=== PATIENT | female | born 1990 | race Caucasian/White ===

== ENCOUNTER → 2018-01-06 | Outpatient (CLI) | payer OTHER | LOC: FIMAGING 13:18 | PROVIDERS: ATTEND Advanced Practice Midwife | DX: O09.892 Supervision of other high risk pregnancies, second trimester (principal); M06.9 Rheumatoid arthritis, unspecified; Z3A.19 19 weeks gestation of pregnancy ==

== ENCOUNTER 2018-05-24 00:03 | Inpatient (IN) | payer OTHER ==
[2018-05-24] MEDS ORDERED: MISOPROSTOL 200 MCG TAB PO PRN (20:25)
[2018-05-24] MEDS ORDERED: LIDOCAINE 1% 300 MG/30 ML SDV SC PRN (20:25)
[2018-05-24] MEDS ORDERED: LR 1,000 ML IV PRN (20:25)
[2018-05-24] MEDS ORDERED: OXYTOCIN/RINGERS LACTATE 1,000 ML IV PRN (20:25)
[2018-05-24] MEDS ORDERED: EPSOM SALT 454 GM TP PRN (20:25)
[2018-05-24] MEDS ORDERED: IBUPROFEN 600 MG TAB PO PRN (20:25)
[2018-05-24] MEDS ORDERED: AMMONIA AROMATIC 1 EACH AMP IH PRN (20:25)
[2018-05-24] MEDS ORDERED: TERBUTALINE SULFATE 1 MG/ML VIAL IV PRN (20:25)
[2018-05-24] MEDS ORDERED: OLIVE OIL 118 ML BTL MISC PRN (20:25)
[2018-05-24] MEDS ORDERED: hydrOXYzine HCL 50 MG TAB PO ONE (20:29)
--- NOTE | 2018-05-24 20:36 | PDGENHP ---
History and Physical History and Physical: Care: [facility] HPI: Began having contractions this morning around 2 am. Was seen in L & D early today and was found to be 1 cm/70/-2 station having contractions q 4 -6 minutes that did not require breathing through. Went home and was able to get some rest. Contractions have picked up again and are quite intense. Melissa lives an hour away from the hospital. Patient is a 27 yo G 2 P 0 @ 39.2 weeks that presents to L&D with complaints of uc's EDC:05/30/2018 which is based on LMP: 08/23/2017 which is known and consistent with Ultrasound at 10 weeks. Her is complicated by: mild anemia, lyon zone fragile x, rheumatoid arthritis that has been in remission since - no medications Review of Systems: Constitutional: Denies any fever, chills, or fatigue HEENT: denies any visual changes, difficulty swallowing, hearing loss Cardiovascular: Denies any chest pain, palpitations, leg swelling Respiratory: denies any cough, wheezing, or shortness of breathe GI: Denies any nausea, vomiting, diarrhea, constipation : denies any dysuria, urgency, frequency, vaginal bleeding Musculoskeletal: denies any muscle or bone pain Skin: denies any rashes Neuro: denies any headache, seizures, lightheadedness, dizziness, or loss of consciousness Psychiatric: denies any depression, anxiety, or SI/HI thoughts HISTORY: Previous OB history: TAB 2007; no complications Past medical history: rheumatoid arthritis; broke back in 2014-did not require surgery; concussion 2016 Past surgical history: breast augmentation 2013 Social: Denies any alcohol, tobacco, or drug use. Family history: half sister type 1 diabetes, sister seizure disorder Medications: PNV Allergies (list reaction): NKDA LABS: Rh: o+ ABS: Neg Rubella: Immune HbsAg: NR HIV: NR VDRL: NR 1hr: 120 GC: Neg Chlamydia: Neg Pap: Normal GBS: NEG BMI: (prepreg) 22 PHYSICAL EXAM: Constitutional: WN, A&Ox3 HEENT: normocephalic atraumatic, supple Skin: Warm, dry, intact Heart: RRR, no murmur Chest: CTA-B Abdomen: Soft, nontender, gravid SVE: 2/70/-2, anterior, soft, BBOW Extremities: no edema, negative homans sign Neuro: grossly normal Psych: normal affect assessment: FHT baseline 140 +accels, no decels, moderate variability Contractions: toco q 4 Assessment: 1) 27 yo G 2 P 0 with IUP@ 39.2 2) Prolonged latent labor 3) GBS neg 4) Cat 1 FHR tracing Plan: 1) Reviewed with pt and partner options for care. Given she is exhausted and they live an hour away, offered in house therapeutic rest or may be discharged to go home to await active labor. Discussed concerns regarding maternal exhaustion. They would like to be admitted and try rest for now. 2) Admit to L&D 3) Morphine 10 mg im and Visteral 100 mg po for therapeutic rest 4) Q 4 NST until active labor 5) Recheck VE as indicated 6) She may want an epidural later on in her labor but is open to other comfort measures.
[2018-05-24 23:04] LABS: PLATELET COUNT 218 10^3/uL (150-400)
[2018-05-25] MEDS ORDERED: fentaNYL 2MCG/ML/BUP 0.1% RTU 100 ML BAG EP ONE (00:02)
[2018-05-25] MEDS ORDERED: PHENYLEPHRINE HCL 100 MCG/ML SYR ONE (00:02)
[2018-05-25] MEDS ORDERED: fentaNYL 100 MCG/2 ML INJ ONE (00:02)
[2018-05-25] MEDS ORDERED: NALOXONE HCL 0.4 MG/ML INJ IVP PRN (00:44)
[2018-05-25] MEDS ORDERED: ONDANSETRON 4 MG/2 ML VIAL IVP PRN (00:44)
[2018-05-25] MEDS ORDERED: PHENYLEPHRINE HCL 100 MCG/ML SYR IVP PRN (00:44)
--- NOTE | 2018-05-25 00:48 | PDANEPAE ---
ANE History of Present Illness ob ANE Past Medical History - Cardiovascular History Hx Hypertension: No Hx Arrhythmias: No Hx Chest Pain: No Hx Coronary Artery / Peripheral Vascular Disease: No Hx CHF / Valvular Disease: No Hx Palpitations: No - Pulmonary History Hx COPD: No Hx Asthma/Reactive Airway Disease: No Hx Recent Upper Respiratory Infection: No Hx Oxygen in Use at Home: No Hx Sleep Apnea: No - Neurologic History Hx Cerebrovascular Accident: No Hx Seizures: No Hx Dementia: No - Endocrine History Hx Diabetes: No Hypothyroid: No Hyperthyroid: No - Renal History Hx Renal Disorders: No - Liver History Hx Hepatic Disorders: No - Other Health History Other Health History: RA, l1,l2 vertebral fractures TP in past ANE Review of Systems Review of Systems: - Exercise capacity Exercise capacity: >=4 METS ANE Patient History - Allergies Allergies/Adverse Reactions: No Known Allergies Allergy (Verified 05/24/18 20:16) - Anes Hx Anes Hx: no prior problems - Smoking Hx Smoking Status: Never smoked ANE Labs/Vital Signs - Labs Result Diagrams: 05/24/18 22:51 - Vital Signs Height: 167.64 cm Weight: 72.575 kg ANE Physical Exam - Airway Mallampati Score: Class 2 - Pulmonary Pulmonary: no respiratory distress - Cardiovascular Cardiovascular: regular rate and rhythym - ASA Status ASA Status: II ANE Anesthesia Plan Anesthesia Plan: spinal, epidural
[2018-05-25] MEDS ORDERED: fentaNYL 2MCG/ML/BUP 0.1% RTU 100 ML EP SCH (01:00)
[2018-05-25] MEDS ORDERED: LR 500 ML IV SCH (01:00)
[2018-05-25] MEDS ORDERED: AMMONIA AROMATIC 1 EACH AMP IH ONE (06:34)
[2018-05-25] MEDS ORDERED: OLIVE OIL 118 ML BTL ONE (06:34)
[2018-05-25] MEDS ORDERED: LIDOCAINE 1% 300 MG/30 ML SDV ONE (06:34)
[2018-05-25] MEDS ORDERED: OXYTOCIN 10 UNIT/ML VIAL ONE (06:34)
[2018-05-25] MEDS ORDERED: MISOPROSTOL 200 MCG TAB ONE (06:34)
[2018-05-25] MEDS ORDERED: TERBUTALINE SULFATE 1 MG/ML VIAL ONE (06:34)
--- NOTE | 2018-05-25 08:09 | OBPROG ---
Labor Progress Note Assessment/Plan: Assessment: 27yo with IUP@ 39-2wks Active labor GBS Negative Cat 2 FHR tracing AROM- clear MISTY Plan: expectant management for now, if no increase in ctx freq will start pitocin in 1 hr anticipate 05/25/18 08:11 Subjective/Intrapartum Course: 05/25/18 08:01 Pt doing well. She had received morphine last night for therapeutic rest, which did not help. She opted to get MISTY at that time, around midnight. Post MISTY she was noted to have made cervical change, 3-4cm. Expectant management throughout night. This morning at approx 0600 she was noted to be 7cm, per RN. She reports feeling more on left side and being super numb on her right. Objective: 05/24/18 22:51 Patient ABO/Rh O POSITIVE 05/24/18 22:51 - SVE Dilation (cm): 6 Effacement (%): 80 Station: -2 Membranes: AROM Amniotic Fluid Color: Clear - Contraction Pattern Assessment Current Contraction Pattern: Irregular - FHR Assessment Gtz FHR (bpm): 140 (prolong decel after AROM, approx 3 min, now back to baseline.) FHR Pattern Variability: Moderate FHR Category: 2 - Procedures Non-surgical Procedures: Amniotomy Oxytocin Orders Assessment - Pre-Induction/Augmentation Assessment Presentation: Vertex Gestational Age: 39 week(s) and 1 day(s) Estimated Weight: 2501-3400g Membrane Status: Ruptured Current Sterile Vaginal Exam (SVE): 6/80/-2 Current Contraction Pattern: Irregular - Heart Rate Pattern Gtz FHR Baseline (bpm): 140 FHR Category: 1 FHR Pattern Variability: Moderate FHR Accelerations: Present - Sage's Score Dilation: 5-6cm Effacement: 80+ Station: -2 Cervix: Soft Cervix Position: Mid Sage Score Total: 10 - Induction/Augmentation Consent Risks/Benefits of Procedure Reviewed/Pt Agrees to Proceed: Yes ICD10 Worksheet Patient Problems: Problems Problem Status Onset Labor and delivery, indication for care Acute False labor after 37 completed weeks of gestation Acute - ICD10 Problem Qualifiers (1) Labor and delivery, indication for care
[2018-05-25] MEDS ORDERED: LR 500 ML IV PRN (08:20)
[2018-05-25] MEDS ORDERED: OXYTOCIN/RINGERS LACTATE 500 ML IV SCH (08:30)
--- NOTE | 2018-05-25 11:27 | OBDEL ---
Info Type: Vaginal Presentation at Delivery: Vertex L&D Analgesia/Anesthesia Type: Epidural GBS+: No Intrapartum Medications: Generic Name Dose Route Start Last Admin Trade Name Freq PRN Reason Stop Dose Admin Oxytocin/Lactated Ringer's 500 mls @ 0 mls/hr 05/25/18 08:30 05/25/18 09:18 Pitocin 30 Units/Lr (Premix) IV 11/21/18 08:29 500 mls CONT PASTOR Administration Protocol Per Protocol Discontinued Medications Generic Name Dose Route Start Last Admin Trade Name Freq PRN Reason Stop Dose Admin Hydroxyzine HCl 100 mg 05/24/18 20:29 05/24/18 20:49 Hydroxyzine Hcl PO 05/24/18 20:30 100 mg ONCE ONE Administration Morphine Sulfate 10 mg 05/24/18 20:28 05/24/18 20:48 Morphine IM 05/24/18 20:29 10 mg ONCE ONE Administration - Hospital Course Intrapartum: 05/25/18 08:01 Pt doing well. She had received morphine last night for therapeutic rest, which did not help. She opted to get MISTY at that time, around midnight. Post MISTY she was noted to have made cervical change, 3-4cm. Expectant management throughout night. This morning at approx 0600 she was noted to be 7cm, per RN. She reports feeling more on left side and being super numb on her right. Indications for Delivery: SROM Vaginal Delivery - Delivery Provider Delivery Physician/CNM: Sandra Valadez - Labor and Delivery Onset of Contractions Date: 05/24/18 Onset of Contractions Time: 02:18 Onset of Contractions Type: Augmented Rupture of Membranes Date: 05/25/18 Rupture of Membranes Time: 07:48 Rupture of Membranes Type: Artificial Amniotic Fluid Color: Clear Dilation Complete Date: 05/25/18 Dilation Complete Time: 10:34 Placenta Delivery Date: 05/25/18 Placenta Delivery Time: 10:56 Total Hours of Labor: 32 Non-surgical Procedures: Amniotomy Laceration: 2nd Degree Repair: 3-0, Vicryl Vaginal Sponge Count Correct: Yes Vaginal Needle Count Correct: Yes Vaginal Sweep Performed: Yes EBL: 300 Delivery Events: None Delivery Comment: pushed <15min. Dad (Florentin) helped catch - Medications Labor Augmentation/Induction Methods Used: Pitocin Data MICHAEL: 05/30/18 Gestational Age: 39 week(s) and 2 day(s) Gtz Delivery Date: 05/25/18 Delivery Time: 10:49 Sex of : Male [place] Weight (gm): 3334 kg Score (1 Min): 8 Score (5 Min): 9 ICD10 Worksheet Patient Problems: Problems Problem Status Onset Labor and delivery, indication for care Acute (spontaneous vaginal delivery) Acute Second degree perineal laceration during delivery Acute False labor after 37 completed weeks of gestation Acute - ICD10 Problem Qualifiers (1) Labor and delivery, indication for care (2) (spontaneous vaginal delivery) (3) Second degree perineal laceration during delivery
[2018-05-25] MEDS ORDERED: HYDROCORTISONE 0.5% CREAM TP PRN (13:11)
[2018-05-25] MEDS ORDERED: SIMETHICONE 80 MG TAB CHEW PO PRN (13:11)
[2018-05-25] MEDS: ACETAMINOPHEN 325 MG TAB PO SCH ×2 (15:00→20:00)
[2018-05-25] MEDS: IBUPROFEN 600 MG TAB PO SCH (20:01)
[2018-05-25] MEDS: DOCUSATE SODIUM 100 MG CAP PO PRN (20:01)
[2018-05-26] MEDS: ACETAMINOPHEN 325 MG TAB PO SCH ×4 (05:36→19:15)
[2018-05-26] MEDS: IBUPROFEN 600 MG TAB PO SCH ×4 (05:36→19:15)
--- NOTE | 2018-05-26 11:46 | POSTANESTH ---
Post Anesthetic Evaluation Cardiovascular Status: Normal, Stable Respiratory Status: Normal, Stable Level of Consciousness/Mental Status: Can Participate in Eval, Alert and Oriented Pain Control: Adequate, Prn Tx Ordered Nausea/Vomiting Control: Adequate, Prn Tx Ordered Complications Possibly Related to Anesthesia: None Noted (Mild site tenderness at epidural insertion site. No erythema or induration. Denies weakness, paresthesias, headaches. Overall very pleased with epidural.)
--- NOTE | 2018-05-26 12:18 | OBPP ---
Progress Note Assessment/Plan: Assessment: 1. yesterday. 2. Breast feeding with assistance. 3. Normal PP progress. Plan: 1. Continue support. 2. Plan d/c home tomorrow. 05/26/18 12:15 Subjective/ Course: 05/26/18 12:17 Pt doing well. VSS. Feeling more confident with breast feeding. Plan d/c home tomorrow. Objective: 05/26/18 05:45 Patient ABO/Rh O POSITIVE 05/24/18 22:51 Temp Pulse Resp BP Pulse Ox 36.7 C 75 16 95/58 L 92 05/26/18 08:00 05/26/18 08:00 05/26/18 08:00 05/26/18 08:00 05/26/18 08:00 VSS. Uterine Position/Fundal Height: At Umbilicus Uterine Tone: Firm
[2018-05-26] MEDS: DOCUSATE SODIUM 100 MG CAP PO PRN (12:29)
[2018-05-27] MEDS: ACETAMINOPHEN 325 MG TAB PO SCH ×3 (00:34→16:36)
[2018-05-27] MEDS: IBUPROFEN 600 MG TAB PO SCH ×3 (00:35→13:12)
[2018-05-27] MEDS: DOCUSATE SODIUM 100 MG CAP PO PRN (08:53)
[2018-05-27 10:57] VITALS: BP 104/68
--- NOTE | 2018-05-27 10:57 | OBGCSDC ---
General Delivery Information - General Info : 2 Para: 1 Abortions: 1 Type: Vaginal L&D Analgesia/Anesthesia Type: Epidural Admission Date: 05/24/18 Labs: Patient ABO/Rh O POSITIVE 05/24/18 22:51 Hct 29.3 % (38.0-47.0) L 05/26/18 05:45 - Hospital Course Intrapartum: 05/25/18 08:01 Pt doing well. She had received morphine last night for therapeutic rest, which did not help. She opted to get MISTY at that time, around midnight. Post MISTY she was noted to have made cervical change, 3-4cm. Expectant management throughout night. This morning at approx 0600 she was noted to be 7cm, per RN. She reports feeling more on left side and being super numb on her right. : 05/26/18 12:17 Pt doing well. VSS. Feeling more confident with breast feeding. Plan d/c home tomorrow. S) Pt doing well, reports min pain and bleeding. she is ambulating and voiding without difficulty. She is - having some latch issues, but is improving. She desires discharge home today. O) VSS, afebrile constitutional: WNF, A&Ox3 HEENT: normocephalic, atraumatic, supple Heart: RRR, No murmur Chest: CTA-B Breasts: soft, nontender, not engorged, nipples intact Abdomen: Soft, nontender Uterus: Firm at U-2 Lochia: Minimal rubra Perineum: Intact, healing well Extremities: Trace edema, and negative Jeff's sign Neuro: Grossly normal A) 27-year-old S/P PPD#2 P) Discharge home today Continue Pelvic rest x6wks Discussed danger signs (infection, preeclampsia, depression, heavy bleeding, etc ) RTO in 2/4/6 weeks 05/27/18 13:18 Vaginal - Delivery Provider Delivery Physician/CNM: Sandra Valadez - Diagnosis Labor: Augmented Rupture of Membranes Type: Artificial Amniotic Fluid Color: Clear Laceration: 2nd Degree Repair: 3-0, Vicryl Delivery Events: None - Procedures Non-surgical Procedures: Amniotomy - Delivery Non-surgical Procedures: Amniotomy EBL: 300 Data MICHAEL: 05/30/18 Gestational Age: 39 week(s) and 4 day(s) Gtz Delivery Date: 05/25/18 Delivery Time: 10:49 Sex of : Male [place] Weight (gm): 3334 kg Score (1 Min): 8 Score (5 Min): 9 Discharge Information - Discharge Information Prescriptions: Ibuprofen [Motrin (*)] 600 mg PO Q6H #60 tab Condition: Good Instruction/Follow Up: Two Weeks, Four Weeks, Six Weeks
== END 2018-05-27 15:00 | disposition home or self-care (01) | DRG 807 ==
LOC: FLD 00:03 → OBSVTOIN 20:33 → FOB 05-25 14:50
PROVIDERS: ADMIT Advanced Practice Midwife; ATTEND Advanced Practice Midwife
PROC: 10907ZC Drainage of Amniotic Fluid, Therapeutic from Products of Conception, Via Natural or Artificial Opening (ICD-10-PCS; principal; 2018-05-25)
PROC: 0KQM0ZZ Repair Perineum Muscle, Open Approach (ICD-10-PCS; principal; 2018-05-25)
PROC: 10E0XZZ Delivery of Products of Conception, External Approach (ICD-10-PCS; principal; 2018-05-25)
DX: O99.03 Anemia complicating the puerperium (principal); Z37.0 Single live birth; D64.9 Anemia, unspecified; Z3A.39 39 weeks gestation of pregnancy; O62.1 Secondary uterine inertia; O70.1 Second degree perineal laceration during delivery
CPT/HCPCS: J2270; J2370; J2590; J3010; J3105

== ENCOUNTER 2018-05-24 10:21 | Observation (INO) | payer OTHER ==
--- NOTE | 2018-05-24 11:52 | SOAPPROG ---
SOAP Progress Note Assessment/Plan: Assessment: Single IUP @ 39.2 weeks, latent labor. Category 1 strip Plan: 05/24/18 12:01 Encouraged to go home and rest if she is able. She states she thinks she can sleep. Given [employer] handout and advised to do the position changes then rest as able. Reviewed when to page us and signs its time to come back in. They do live an hour away so will be keeping that in mind as well. Subjective: Pt is a 27 yo @ 39.2 weeks reporting uc's since 0200 this morning. Initially she thought she may have SROM's however lost her mucus plug and then had a small amount of liquid discharge behind. Nothing since other than some minimal spotting. Contractions had been every 4 minutes, lasting 40 secs. Able to talk through them. Since arrival on the unit the contractions are now irregular q 4 to 6 minutes and palpate mild. Objective: O) Afebrile. VSS. GBS neg. FHT baseline 120, mod osbaldo, + accels, no decels. VE 1/70/-2 station, no leaking fluid or bloody show to test. - Time Spent With Patient Time Spent With Patient: 20 mins - Pending Discharge Pending Discharge Within 24 Hours: Yes Pending Discharge Date: 05/25/18 Pending Discharge Time: 11:00 ICD10 Worksheet Patient Problems: Problems Problem Status Onset False labor after 37 completed weeks of gestation Acute - ICD10 Problem Qualifiers (1) False labor after 37 completed weeks of gestation
== END 2018-05-24 11:00 | disposition home or self-care (01) ==
LOC: FLD 10:21
PROVIDERS: ADMIT Advanced Practice Midwife; ATTEND Advanced Practice Midwife
DX: O47.1 False labor at or after 37 completed weeks of gestation (principal); Z3A.39 39 weeks gestation of pregnancy
CPT/HCPCS: 59025; G0378